=== PATIENT | female | born 1980 | race Caucasian/White ===

== ENCOUNTER 2020-06-05 12:23 | Emergency (ER) | payer OTHER, SELFPAY ==
[2020-06-05 12:37] VITALS: PULSE 79; RESP 20; TEMP 37.2; O2SAT 100
--- NOTE | 2020-06-05 12:37 | ED.URI ---
HPI - URI/Sore Throat General Chief Complaint: Upper Respiratory Infection Stated Complaint: covid exposure Source: patient Mode of arrival: ambulatory Limitations: no limitations History of Present Illness HPI Narrative: Patient is a 40-year-old female who presents for Covid testing. Patient reports positive test of exposure on 05/30/2020. She denies symptoms at this time. She reports she needs to be tested for work so she can return to court today. elicited complaint: other (Covid testing) Related Data Home Medications Medication Instructions Recorded Confirmed No Home Medications 06/05/20 06/05/20 Allergies Allergy/AdvReac Type Severity Reaction Status Date / Time Penicillins Allergy Hives Verified 06/05/20 12:31 Review of Systems Review of Systems: Narrative: CONSTITUTIONAL: Denies fever, chills, or sweats. EYES: Denies visual changes, redness, or discharge. ENT: Denies rhinorrhea, congestion, sore throat, or otalgia. CARDIOVASCULAR: Denies chest pain, palpitations, or edema. RESPIRATORY: Denies cough or dyspnea. GASTROINTESTINAL: Denies abdominal pain, nausea, vomiting, or diarrhea. GENITOURINARY: Denies dysuria or hematuria. SKIN: Denies rash or itching. MUSCULOSKELETAL: Denies back pain, joint pain, or myalgia. NEUROLOGIC: Denies headache, numbness, dizziness, or weakness. PSYCHIATRIC: Denies anxiety or depression. PMFSH Past Medical History Medical History No significant past medical history Surgical History Surgical History H/O hernia repair Family History Family History (Updated 06/05/20 @ 12:39 by ALEXANDER Orta) Other No significant family history Social History Social History (Updated 06/05/20 @ 12:39 by ALEXANDER Orta) Smoking status: Never smoker Alcohol intake: never Substance use: never Gender identity (if verbalized by the patient): Female Exam Narrative: Exam Narrative: GENERAL: Well-appearing, well-nourished, and in no acute distress. HEAD: Normocephalic, atraumatic. EYES: No redness or drainage. ENT: Mucous membranes pink and moist. CHEST: No respiratory distress. HEART: Regular rate and rhythm. EXTREMITIES: Normal range of motion. SKIN: Warm, dry, no rash. NEURO: No focal deficits. Alert and oriented x3. Gait steady. PSYCH: Normal affect. No signs of depression or anxiety. Course Vital Signs Vital signs: Vital Signs Temperature 37.2 C 06/05/20 12:37 Pulse Rate 79 06/05/20 12:37 Respiratory Rate 20 06/05/20 12:37 Pulse Oximetry 100 06/05/20 12:37 Temperature 37.2 C 06/05/20 12:37 Pulse Rate 79 06/05/20 12:37 Respiratory Rate 20 06/05/20 12:37 Pulse Oximetry 100 06/05/20 12:37 MDM - URI/Sore Throat MDM Narrative Medical decision making narrative: Rapid Covid test is negative, PCR ordered as well. Discussed with patient quarantine. Patient is stable for discharge to home with outpatient follow-up as needed. Differential Diagnosis Differential diagnosis: Likely upper respiratory infection, otitis media, viral infection, pharyngitis and other Critical Care Time Critical Care Time Critical Care Time: No Discharge Plan Discharge Clinical Impression: Contact with and (suspected) exposure to covid-19 Patient Disposition: Home, Self-Care Condition: Stable Instructions: COVID-19 (Coronavirus Disease 2019) (ED) Additional Instructions: Your rapid Covid test is negative at this time. Continue to watch for symptoms quarantine as directed by your place of business. PCR testing for Covid sent to lab at this time, we will notify you of those results as well. Prescriptions: No Action No Home Medications RF: 0 Follow-up/Referrals: PHYSICIAN,COT[facility] DISPATCHER [Primary Care Provider] - Stand Alone Forms: Work/School Release IP Time of Disposition: 12:55
[2020-06-05 22:17] LABS: SARS-CoV-2 RNA PCR Negative
== END 2020-06-05 13:26 | disposition home or self-care (01) ==
PROVIDERS: Emergency Provider Nurse Practitioner
DX: Z20.822 Contact with and (suspected) exposure to COVID-19 (principal)
CPT/HCPCS: 87426; 99212; 99213; C9803; G0463; U0003